=== PATIENT | female | born 1950 | race Caucasian/White ===

== ENCOUNTER 2017-01-28 00:38 | Emergency (ER) | payer MEDICARE, BC ==
[~2017-01-28] VITALS: Ht 162.6 cm; Wt 122.0 kg
[2017-01-28 00:39] VITALS: Ht 162.6 cm; Wt 122.0 kg
[2017-01-28 01:30] LABS: BASOPHILS # (AUTO) 0.1 T/MM3 (0-0.2); BASOPHILS % (AUTO) 0.5 % (0-2); EOSINOPHILS # (AUTO) 0.3 T/MM3 (0-0.5); EOSINOPHILS % (AUTO) 2.8 % (0-4); HCT - HEMATOCRIT 42.5 % (36-46); HGB - HEMOGLOBIN 14.2 GM/DL (12-16); IMMATURE GRANULOCYTE # (AUTO) 0.07 T/MM3 (0.00-0.03); IMMATURE GRANULOCYTE % (AUTO) 0.6 % (0.0-0.5); LYMPHOCYTES # (AUTO) 2.3 T/MM3 (1-4.8); LYMPHOCYTES % (AUTO) 18.8 % (23-45); MEAN CORPUSCULAR HGB 28.2 UUG (26-34); MEAN CORPUSCULAR HGB CONC(MCHC 33.4 GM/DL (31-37); MEAN CORPUSCULAR VOLUME 84.3 UM3 (80-100); MEAN PLATELET VOLUME 10.4 UM3 (9.4-12.4); MONOCYTES # (AUTO) 0.9 T/MM3 (0-0.8); MONOCYTES % (AUTO) 7.8 % (0-9.0); NEUTROPHILS #(AUTO)-ABSOLUTE 8.4 T/MM3 (1.8-7.7); NEUTROPHILS % (AUTO) 69.5 % (33-66); RED BLOOD COUNT 5.04 M/MM3 (4.00-5.20); WBC - WHITE BLOOD COUNT 12.1 T/MM3 (4.5-11.0)
--- NOTE | 2017-01-28 01:36 | NUR ---
PT STATUS PT STATES SHE IS FEELING MUCH BETTER, C/O A FEELING OF "TIGHTNESS OF SKIN AND DRYNESS" TO FACE INSTEAD OF NUMBNESS. PT DENIES ANY OTHER C/O AT THIS TIME AND SHOWS NO SIGNS OF DISTRESS.
[2017-01-28] MEDS: NORMAL SALINE 1,000 ML IV ONE (01:38)
[2017-01-28 01:41] LABS: PTT 27.7 SEC (24-36)
[2017-01-28] MEDS: LORAZEPAM 2 MG/ML INJECTION IV ONE (01:41)
[2017-01-28 01:43] LABS: ALBUMIN 4.2 G/DL (3.5-5.0); ALBUMIN/GLOBULIN RATIO 1.5 RATIO (1.1-2.2); ALKALINE PHOSPHATASE 82 U/L (38-126); ALT (SGPT) 36 U/L (9-52); ANION GAP 13 MEQ/L (5-15); AST (SGOT) 20 U/L (14-36); BUN/CREATININE RATIO 21 RATIO (6-26); CHLORIDE 105 MEQ/L (98-107); CO2 - CARBON DIOXIDE 30 MEQ/L (22-30); CREATININE 0.7 MG/DL (0.7-1.2); GLOMERULAR FILTRATION RATE 83; GLUCOSE 119 MG/DL (65-110); POTASSIUM 3.3 MEQ/L (3.6-5); SODIUM 148 MEQ/L (134-144)
[2017-01-28] MEDS ORDERED: BENA40TA3 PO (01:57)
[2017-01-28] MEDS ORDERED: HCTZ PO (01:58)
[2017-01-28] MEDS ORDERED: BENZ100C97 PO (01:59)
[2017-01-28] MEDS ORDERED: OMEP20TA2 PO (02:00)
[2017-01-28] MEDS ORDERED: HYDROMORPHONE 2mg/ml INJECTION IV ONE (02:00)
--- NOTE | 2017-01-28 02:00 | NUR ---
CT PT TO CT PER COT.
--- NOTE | 2017-01-28 02:08 | NUR ---
CT PT RETURNED FROM CT PER COT.
--- NOTE | 2017-01-28 02:25 | NUR ---
PROVIDER DR. CAST IN ROOM WITH PT.
--- NOTE | 2017-01-28 02:48 | ERPDOC ---
Departure Disposition Decision Date: January 28, 2017 Disposition Decision Time: 02:52 Disposition: 01 DISCHARGED HOME, SELF-CARE Impression Impression Impression: Primary Impression: Paresthesia Additional Impression: Anxiety Severity: Moderate Condition: Improved Seen By: Physician only Referrals: JORDON ENRIQUEZ DO (Family) Patient Instructions: Anxiety (ED) Problems/Meds/Labs Reviewed?: Yes Medications reviewed and manag: Yes Additional Instructions: Hydroxyzine Follow up care ordered?: Yes Mental Status: Alert, Oriented Scripts Hydroxyzine HCl (Hydroxyzine HCl) 10 Mg/5 Ml Syrup 5 ML PO BID for ANXIETY, #150 ML Prov: EMPERATRIZ CAST MD 01/28/17 HPI - General Medical General Chief Complaint: General Stated Complaint: FACE NUMB Time Seen by Provider: 00:56 HPI - General Medical Initial Comments 66-year-old female with numbness of face. Patient has had 2 episodes over the last 3 weeks with numbness of her face. It actually is not numb as in unable to detect touch however it is numb in that it feels dry and stretched. This single last about an hour and resolved both times. She also had some hot tingling feel on her face tonight as it was flushed and red. She has no history of CVA or coronary artery disease. No history of hypertension. She takes her medications each day, but at an indeterminant time. No fever or chills, no headache. Her states she is not acting any differently than usual. Allergies: Coded Allergies: Penicillins (Verified Allergy, Intermediate, RASH, 01/28/17) Sulfa (Sulfonamide Antibiotics) (Verified Allergy, Intermediate, RASH, ) Past History Patient Medical History Problem List Updates: Hypertension, GERD Surgical History Denies Surgeries Family History Family PMH: FOUND: hypertension Social History Smoking Status: Former smoker Substance Use Type: does not use Record Review Pertinent history updated: Yes Review of Systems GI Upper Abdomen: see HPI Integumentary Skin: see HPI Neurological General: see HPI All other Systems All Other Systems: Reviewed and Negative Physical Exam General General Nourishment: well nourished, well developed, appears stated age, no acute distress General Body Habitus: well groomed Vitals and Pain First Documented Vital Signs Date Time Temp Pulse Resp B/P Pulse Ox O2 Delivery O2 Flow Rate FiO2 01/28/17 00:39 98.0 101 20 178/82 94 Room Air Weight: Kilograms: 122.000 Height (feet): 5 Height (inches): 4.00 Triage Pain Scale: Normal Exams: Head: Normocephalic w/o trauma Chest/Resp: Clear all quintana, with good airflow, and symmetry bilaterally CV: Regular rate and rhythm, without murmur or gallop, Pulses 2+ all extremities, capillary refill, <2 seconds all ext., no pedal edema noted Abdomen: Bowel sounds positive, soft, non-tender, non-distended, no hepatosplenomegaly, masses or bruits noted Neurologic: Patient is alert, and oriented, cranial nerves, motor/sensory/ cerebellar, exams w/o gross deficits, to observation Psychiatric: Patient exhibits, appropriate attention, emotion and affect Neurologic (brief) Neurological Brief: FOUND: CN w/o gross def to obs, DTR 2/4 all extremities, gait w/o gross def to obs, motor-no gross deficits, sensory-no gross deficits Comments Patient has full sensation to face, full expression and use of cranial nerves. Differential Diagnoses Considering: CVA, Encephalitis, Medication Effect, Meningitis, TIA Progress Results/Orders Orders Procedure Category Date Status Time Iv Lock (Ed Only) EDM 01/28/17 Transmitted 00:56 Cbc W/Auto LAB 01/28/17 Complete Diff-Reflex Manual 00:56 Cmp - Comprehensive LAB 01/28/17 Complete Metabolic 00:56 INR LAB 01/28/17 Complete 00:56 PTT LAB 01/28/17 Complete 00:56 EKG EKG 01/28/17 Logged 00:56 Ct Head W/O Contrast CT 01/28/17 Taken 00:56 Normal Saline (Normal PHA 01/28/17 Complete Saline Iv) 00:56 Hydralazine PHA 01/28/17 Complete (Apresoline) 01:00 Lorazepam (Ativan) PHA 01/28/17 Complete 01:30 Hydromorphone PHA 01/28/17 Complete (Dilaudid) 02:00 Lab Results Laboratory Tests Test 01/28/17 01:23 White Blood Count 12.1T/MM3 Red Blood Count 5.04M/MM3 Hemoglobin 14.2GM/DL Hematocrit 42.5% Mean Corpuscular Volume 84.3UM3 Mean Corpuscular Hemoglobin 28.2UUG Mean Corpuscular Hemoglobin Concent 33.4GM/DL RDW Standard Deviation 41.9FL Platelet Count 202T/MM3 Mean Platelet Volume 10.4UM3 Immature Granulocyte % (Auto) 0.6% Neutrophils (%) (Auto) 69.5% Lymphocytes (%) (Auto) 18.8% Monocytes (%) (Auto) 7.8% Eosinophils (%) (Auto) 2.8% Basophils (%) (Auto) 0.5% Absolute Immature Granulocyte (auto 0.07T/MM3 Absolute Neutrophils (auto) 8.4T/MM3 Absolute Lymphocytes (auto) 2.3T/MM3 Absolute Monocytes (auto) 0.9T/MM3 Absolute Eosinophils (auto) 0.3T/MM3 Absolute Basophils (auto) 0.1T/MM3 Prothromb Time International Ratio 1.00 Activated Partial Thromboplast Time 27.7SEC Turbidity < 20 Sodium Level 148MEQ/L Potassium Level 3.3MEQ/L Chloride Level 105MEQ/L Carbon Dioxide Level 30MEQ/L Anion Gap 13MEQ/L Blood Urea Nitrogen 15.0MG/DL Creatinine 0.7MG/DL Glomerular Filtration Rate Calc 83 BUN/Creatinine Ratio 21RATIO Glucose Level 119MG/DL Calculated Osmolality 286MOSM/KG Calcium Level 9.0MG/DL Total Bilirubin 0.40MG/DL Icterus Index < 2 Aspartate Amino Transf (AST/SGOT) 20U/L Alanine Aminotransferase (ALT/SGPT) 36U/L Alkaline Phosphatase 82U/L Total Protein 7.0G/DL Albumin 4.2G/DL Globulin 2.8G/DL Albumin/Globulin Ratio 1.5RATIO Chemistry Specimen Hemolysis < 15 Medications Current ED Medications Sodium Chloride (Normal Saline IV) 1,000 ml @ 1,000 mls/hr Q1H ONCE IV Last administered on 01/28/17 01:38; Start 01/28/17 at 00:56; Stop 01/28/17 at 01:55 ; Status DC Hydralazine HCl (Apresoline) 10 mg O ONCE IV Last administered on 01/28/17 01 :38; Start 01/28/17 at 01:00; Stop 01/28/17 at 01:01; Status DC Lorazepam (Ativan) 1 mg O ONCE IV Last administered on 01/28/17 01:41; Start 01/28/17 at 01:30; Stop 01/28/17 at 01:32; Status DC Hydromorphone HCl (Dilaudid) 1 mg O ONCE IV ; Start 01/28/17 at 02:00; Stop at 02:00; Status DC Progress Progress Patient was given 1 L of normal saline, hydralazine 10 mg and Ativan 0.5 mg IV. She responded nicely to medication, blood pressure improved. She does have a history of hypertension and was greater than 200 systolic earlier today. Not taken her medication yet for the night. CT head is negative, blood work is appropriate. EKG shows ventricular rate 99, sinus rhythm. MO interval 155 QRS duration 101 no acute ischemic signs on EKG. She did agree to return immediately if symptoms recur and do not respond to medication. We can try low- dose hydroxyzine for acute anxiety. However I would like her to meet with her primary care provider to make sure that this medication is appropriate for her in the long-term. She was given a small prescription of take with her for trial. EMPERATRIZ CAST MD January 28, 2017 02:48
[2017-01-28] MEDS ORDERED: HYDR10SY4 PO (02:54)
[2017-01-28 02:59] VITALS: BP 174/78; PULSE 78; RESP 15; TEMP 98; O2SAT 94
--- NOTE | 2017-01-28 07:55 | DI ---
Indication: ITS.REASON: Right-sided numbness face. PROCEDURE: CT HEAD W/O CONTRAST: Encounter: Initial Comparison: None Technique: Axial CT images through the head were performed without contrast. Iterative Reconstruction dose reducing technique was utilized. FINDINGS: The ventricles are of normal size, shape, and contour for the patient's age. There are scattered areas of low attenuation in the white matter which most likely represent changes from chronic microvascular ischemia. The brainstem, cerebellum, and cerebral hemispheres otherwise have a normal morphology and CT attenuation. There is no evidence of midline displacement. No hemorrhage, signs of acute territorial stroke, mass effect, mass lesions, or edema is evident. The visualized portions of the skull base, midface, and calvarium demonstrate no abnormality. The paranasal sinuses are well aerated and free of significant disease. The tympanic and mastoid cavities appear normal. IMPRESSION: No acute intracranial abnormality or hemorrhage. There is a preliminary report by [employer]. .
== END 2017-01-28 02:59 | disposition home or self-care (01) ==
LOC: ED 00:38
DX: R20.2 Paresthesia of skin (principal); F41.9 Anxiety disorder, unspecified; I10 Essential (primary) hypertension; Z87.891 Personal history of nicotine dependence
CPT/HCPCS: 70450; 80053; 85025; 85610; 85730; 93005; 96361; 96374; 96375; 99284; J0360; J2060; J7030